=== PATIENT | male | born 1965 | race Caucasian/White ===

== ENCOUNTER 2018-01-03 05:29 | Emergency (ER) | payer SELFPAY ==
[~2018-01-03] VITALS: Ht 185.4 cm; Wt 92.7 kg
[2018-01-03] MEDS ORDERED: DIPH,PERTUSS(ACELL),TET VAC/PF 0.5 ML IM-VACC ONE (06:00)
[2018-01-03] MEDS ORDERED: CLINDAMYCIN PMX 600MG/50ML 50 ML IVPB ONE (06:00)
[2018-01-03] MEDS ORDERED: SODIUM CHLORIDE FLUSH 10ML SYR IVF ONE (06:00)
[2018-01-03] MEDS ORDERED: KETOROLAC 30 MG/1 ML ONE (06:09)
[2018-01-03] MEDS ORDERED: CLINDAMYCIN PMX 600MG/50ML 50 ML ONE (06:09)
[2018-01-03 06:16] LABS: BASOPHILS # (AUTO) 0.16 x10^3/uL (0-0.1); BASOPHILS % (AUTO) 1 % (0-1); EOSINOPHILS # (AUTO) 0.09 x10^3/uL (0-0.4); EOSINOPHILS % (AUTO) 1 % (1-7); LYMPHOCYTES # (AUTO) 0.82 x10^3/uL (1-3.4); LYMPHOCYTES % (AUTO) 5 % (22-44); MD NO; MEAN CORPUSCULAR HEMOGLOBIN 29.8 pg (27.5-34.5); MEAN CORPUSCULAR HGB CONC 33.7 g/dL (33.2-36.2); MEAN CORPUSCULAR VOLUME 88.5 fL (81-97); MEAN PLATELET VOLUME 8.3 fL (7.4-10.4); MONOCYTES # (AUTO) 0.92 x10^3/uL (0.2-0.8); MONOCYTES % (AUTO) 6 % (2-9); NEUTROPHILS # (AUTO) 13.17 x10^3/uL (1.8-6.8); NEUTROPHILS % (AUTO) 87 % (42-75); PLATELET COUNT 252 x10^3/uL (130-400); RED BLOOD COUNT 4.87 x10^6/uL (4.38-5.82); RED CELL DISTRIBUTION WIDTH 13.3 % (9.4-14.8)
[2018-01-03 06:24] LABS: ALBUMIN 2.8 g/dL (3.4-5.0); ANION GAP 8 mmol/L (5-15); CALCIUM 8.2 mg/dL (8.5-10.1); CHLORIDE 104 mmol/L (98-107); CREATININE 0.92 mg/dL (0.7-1.3)
[2018-01-03] MEDS ORDERED: KETOROLAC 30 MG/1 ML IVPush ONE (06:30)
[2018-01-03] MEDS ORDERED: SODIUM CHLORIDE 0.9% 1,000ML IVBOLUS ONE (06:30)
[2018-01-03 07:14] LABS: ACETONE, SERUM Negative (Negative)
[2018-01-03 07:39] LABS: HEMOGLOBIN A1C 11.9 % (4.2-6.3)
[2018-01-03 09:05] VITALS: BP 149/90
== END 2018-01-03 09:08 | disposition home or self-care (01) ==
LOC: ED 07:12
DX: L02.811 Cutaneous abscess of head [any part, except face] (principal); E11.65 Type 2 diabetes mellitus with hyperglycemia
CPT/HCPCS: 36415; 70450; 80048; 82010; 82040; 82800; 82962; 83036; 85025; 96365; 96366; 96375; 99285; J1885; J7030

== ENCOUNTER 2018-08-16 11:47 | Emergency (ER) | payer SELFPAY ==
[~2018-08-16] VITALS: Ht 185.4 cm; Wt 87.1 kg
[2018-08-16 12:01] VITALS: BP 126/85
[2018-08-16] MEDS ORDERED: CARBAMIDE PEROXIDE EAR DROPS 6.5%, 15ML LEFT EAR ONE (12:30)
[2018-08-16] MEDS ORDERED: CARBAMIDE PEROXIDE EAR DROPS 6.5%, 15ML ONE (12:31)
== END 2018-08-16 13:37 | disposition home or self-care (01) ==
LOC: ED 13:10
DX: H60.12 Cellulitis of left external ear (principal); H61.22 Impacted cerumen, left ear
CPT/HCPCS: 69209; 99283

== ENCOUNTER 2018-09-02 20:57 | Inpatient (IN) | payer MEDICAID, OTHER ==
[~2018-09-02] VITALS: Ht 185.4 cm; Wt 85.5 kg
--- NOTE | 2018-09-02 21:51 | NUR ---
PT TO ROOM FROM LOBBY AT THIS TIME.
--- NOTE | 2018-09-02 22:12 | NUR ---
PT PRESENTED WITH C/O NON RADIATING RIGHT SIDED CHEST PAIN SINCE THIS MORNING THAT IS WORSE WITH DEEP BREATHING. DENIES N/V, SOB. MONITORS APPLIED, SIDERAILS UP X2, CALL LIGHT WITHIN REACH. AWAITING ERP FOR EVAL AND ORDERS
[2018-09-02] MEDS ORDERED: KETOROLAC 30 MG/1 ML ONE (23:17)
--- NOTE | 2018-09-02 23:20 | NUR ---
PT MEDICATED PER MAR
[2018-09-02 23:23] LABS: BASOPHILS # (AUTO) 0.11 x10^3/uL (0-0.1); BASOPHILS % (AUTO) 1 % (0-1); EOSINOPHILS # (AUTO) 0.01 x10^3/uL (0-0.4); EOSINOPHILS % (AUTO) 0 % (1-7); LYMPHOCYTES # (AUTO) 1.22 x10^3/uL (1-3.4); LYMPHOCYTES % (AUTO) 9 % (22-44); MD NO; MEAN CORPUSCULAR HEMOGLOBIN 28.4 pg (27.5-34.5); MEAN CORPUSCULAR HGB CONC 33.8 g/dL (33.2-36.2); MEAN PLATELET VOLUME 7.4 fL (7.4-10.4); MONOCYTES # (AUTO) 1.34 x10^3/uL (0.2-0.8); MONOCYTES % (AUTO) 10 % (2-9); NEUTROPHILS # (AUTO) 11.42 x10^3/uL (1.8-6.8); NEUTROPHILS % (AUTO) 81 % (42-75); PLATELET COUNT 295 x10^3/uL (130-400); RED BLOOD COUNT 4.91 x10^6/uL (4.38-5.82)
[2018-09-02] MEDS ORDERED: KETOROLAC 30 MG/1 ML IVPush ONE (23:30)
[2018-09-02 23:33] LABS: ALBUMIN 2.5 g/dL (3.4-5.0); ANION GAP 8 mmol/L (5-15); CALCIUM 8.5 mg/dL (8.5-10.1); CHLORIDE 97 mmol/L (98-107); CREATININE 0.78 mg/dL (0.7-1.3)
[2018-09-02 23:37] LABS: TROPONIN I < 0.015 ng/mL (0.000-0.045)
[2018-09-03] MEDS ORDERED: OMNIPAQUE 350 MG/ML, 100ML BOTTLE ONE (00:10)
--- NOTE | 2018-09-03 00:24 | NUR ---
PT RESTING ON GURNEY, DENIES PAIN, NAD, CALL LIGHT WITHIN REACH. AWAITING CT RESULT
[2018-09-03] MEDS ORDERED: AZITHROMYCIN 500 MG in SODIUM CHLORIDE 0.9% 250 ML IV ONE (01:30)
[2018-09-03] MEDS ORDERED: CEFTRIAXONE 1,000 MG in SODIUM CHLORIDE 0.9% 50 ML IVPB ONE (01:30)
--- NOTE | 2018-09-03 01:32 | NUR ---
[employer] WORKER AT BEDSIDE FOR BLOOD C/X X 2 SETS
--- NOTE | 2018-09-03 01:39 | NUR ---
CALLED TO GIVE REPORT TO PRIYANKA LESTER TO CALL ME BACK
[2018-09-03 02:00] VITALS: BP 137/88
[2018-09-03] MEDS ORDERED: AZITHROMYCIN 500 MG in SODIUM CHLORIDE 0.9% 250 ML IV SCH (03:00)
[2018-09-03] MEDS ORDERED: ONDANSETRON 2MG/ML, 2ML IVPush PRN (03:00)
[2018-09-03] MEDS ORDERED: morphine SULFATE 10 MG/ML, 1ML IVPush PRN (03:00)
[2018-09-03] MEDS: LACTATED RINGERS 1,000 ML IV SCH (03:39)
[2018-09-03] MEDS: HEPARIN 5,000 UNITS/ML, 1ML SQ SCH ×3 (03:50→21:52)
[2018-09-03 04:00] LABS: HEMOGLOBIN A1C 13.4 % (4.2-6.3)
[2018-09-03] MEDS: CEFTRIAXONE PMX 1GM/50ML 50 ML IV SCH (04:38)
[2018-09-03 07:10] VITALS: BP 126/72
[2018-09-03] MEDS ORDERED: VANCOMYCIN PER PHARMACY MC PRN (10:00)
[2018-09-03] MEDS ORDERED: PHARMACOKINETIC MONITORING MC PRN (10:30)
[2018-09-03] MEDS: INSULIN LISPRO 100 UNITS/ML, PEN SQ-INSULIN SCH ×4 (11:00→21:52)
[2018-09-03] MEDS: VANCOMYCIN 1,700 MG in SODIUM CHLORIDE 0.9% 250 ML IV SCH (13:46)
[2018-09-03 13:57] VITALS: BP 133/87
[2018-09-03 21:48] VITALS: BP 143/84
[2018-09-03] MEDS: ACETAMINOPHEN 325 MG TABLET PO PRN (22:00)
[2018-09-04 02:11] VITALS: BP 113/71
[2018-09-04] MEDS: VANCOMYCIN 1,700 MG in SODIUM CHLORIDE 0.9% 250 ML IV SCH ×2 (02:16→14:36)
[2018-09-04] MEDS: CEFTRIAXONE PMX 1GM/50ML 50 ML IV SCH (04:55)
[2018-09-04] MEDS ORDERED: SODIUM CHLORIDE INHALATION 7%, 4 ML NPPB ONE (05:00)
[2018-09-04] MEDS: HEPARIN 5,000 UNITS/ML, 1ML SQ SCH ×3 (05:14→20:50)
[2018-09-04] MEDS: LACTATED RINGERS 1,000 ML IV SCH (06:50)
[2018-09-04 06:51] LABS: BASOPHILS # (AUTO) 0.07 x10^3/uL (0-0.1); BASOPHILS % (AUTO) 1 % (0-1); EOSINOPHILS # (AUTO) 0.11 x10^3/uL (0-0.4); EOSINOPHILS % (AUTO) 1 % (1-7); LYMPHOCYTES # (AUTO) 0.77 x10^3/uL (1-3.4); LYMPHOCYTES % (AUTO) 6 % (22-44); MD NO; MEAN CORPUSCULAR HEMOGLOBIN 28.9 pg (27.5-34.5); MEAN CORPUSCULAR HGB CONC 34.5 g/dL (33.2-36.2); MEAN CORPUSCULAR VOLUME 83.9 fL (81-97); MEAN PLATELET VOLUME 7.3 fL (7.4-10.4); MONOCYTES # (AUTO) 1.09 x10^3/uL (0.2-0.8); MONOCYTES % (AUTO) 8 % (2-9); NEUTROPHILS # (AUTO) 11.59 x10^3/uL (1.8-6.8); NEUTROPHILS % (AUTO) 85 % (42-75); PLATELET COUNT 292 x10^3/uL (130-400); RED BLOOD COUNT 4.46 x10^6/uL (4.38-5.82); RED CELL DISTRIBUTION WIDTH 14.6 % (9.4-14.8)
[2018-09-04 07:01] LABS: ANION GAP 7 mmol/L (5-15); CALCIUM 8.1 mg/dL (8.5-10.1); CHLORIDE 95 mmol/L (98-107)
[2018-09-04 07:09] LABS: ALANINE AMINOTRANSFERASE 18 U/L (12-78); ALKALINE PHOSPHATASE 153 U/L (45-117); BILIRUBIN,TOTAL 0.6 mg/dL (0.2-1.0); CREATININE 0.55 mg/dL (0.7-1.3); TOTAL PROTEIN 7.4 g/dL (6.4-8.2)
[2018-09-04 07:16] LABS: C-REACTIVE PROTEIN, QUANT > 19.00 mg/dL (0.02-0.49)
[2018-09-04 07:39] LABS: HCT (SEDRATE) 37.4 % (39.2-51.8)
[2018-09-04 08:01] VITALS: BP 123/75
[2018-09-04] MEDS ORDERED: AZITHROMYCIN 500 MG in SODIUM CHLORIDE 0.9% 250 ML IV SCH (09:00)
[2018-09-04] MEDS: LISINOPRIL 5 MG TABLET PO SCH (09:22)
[2018-09-04] MEDS: INSULIN LISPRO 100 UNITS/ML, PEN SQ-INSULIN SCH ×4 (09:22→21:12)
[2018-09-04 12:00] VITALS: BP 123/82
[2018-09-04 21:30] VITALS: BP 121/79
[2018-09-04] MEDS ORDERED: PNEUMOC 13-VALENT VACC, 0.5 ML IM-VACC ONE (21:30)
[2018-09-04 21:43] LABS: RAPID INFLUENZA A Negative (Negative); RAPID INFLUENZA B Negative (Negative)
[2018-09-05 01:53] LABS: BASOPHILS # (AUTO) 0.05 x10^3/uL (0-0.1); BASOPHILS % (AUTO) 0 % (0-1); EOSINOPHILS % (AUTO) 0 % (1-7); LYMPHOCYTES # (AUTO) 1.23 x10^3/uL (1-3.4); LYMPHOCYTES % (AUTO) 9 % (22-44); MD NO; MEAN CORPUSCULAR HEMOGLOBIN 28.1 pg (27.5-34.5); MEAN CORPUSCULAR HGB CONC 33.5 g/dL (33.2-36.2); MEAN CORPUSCULAR VOLUME 83.9 fL (81-97); MEAN PLATELET VOLUME 7.4 fL (7.4-10.4); MONOCYTES # (AUTO) 1.25 x10^3/uL (0.2-0.8); MONOCYTES % (AUTO) 9 % (2-9); NEUTROPHILS # (AUTO) 11.48 x10^3/uL (1.8-6.8); NEUTROPHILS % (AUTO) 82 % (42-75); PLATELET COUNT 303 x10^3/uL (130-400); RED BLOOD COUNT 4.16 x10^6/uL (4.38-5.82); RED CELL DISTRIBUTION WIDTH 15.2 % (9.4-14.8)
[2018-09-05 01:57] VITALS: BP 116/75
[2018-09-05 02:07] LABS: ALBUMIN 1.7 g/dL (3.4-5.0); ANION GAP 6 mmol/L (5-15); CALCIUM 7.7 mg/dL (8.5-10.1); CHLORIDE 95 mmol/L (98-107)
[2018-09-05 02:13] LABS: ALANINE AMINOTRANSFERASE 15 U/L (12-78); ALKALINE PHOSPHATASE 142 U/L (45-117); BILIRUBIN,TOTAL 0.6 mg/dL (0.2-1.0); CREATININE 0.58 mg/dL (0.7-1.3); TOTAL PROTEIN 6.6 g/dL (6.4-8.2)
[2018-09-05] MEDS: VANCOMYCIN 1,700 MG in SODIUM CHLORIDE 0.9% 250 ML IV SCH ×3 (03:06→22:05)
[2018-09-05] MEDS: LACTATED RINGERS 1,000 ML IV SCH (04:48)
[2018-09-05] MEDS: HEPARIN 5,000 UNITS/ML, 1ML SQ SCH ×3 (06:21→22:05)
[2018-09-05 07:52] VITALS: BP 120/78
[2018-09-05] MEDS: LISINOPRIL 5 MG TABLET PO SCH (08:07)
[2018-09-05] MEDS: INSULIN LISPRO 100 UNITS/ML, PEN SQ-INSULIN SCH ×4 (08:07→22:05)
[2018-09-05 13:52] VITALS: BP 107/68
[2018-09-05] MEDS ORDERED: POTASSIUM CHLORIDE 20 MEQ TAB.ER.PRT PO ONE (15:00)
[2018-09-05 16:33] LABS: AMPHETAMINE SCREEN, URINE Negative (Negative); BARBITURATE SCREEN, URINE Negative (Negative); BENZODIAZEPINE SCREEN, URINE Negative (Negative); CANNABINOID SCREEN, URINE Negative (Negative); COCAINE SCREEN, URINE Negative (Negative); METHADONE SCREEN, URINE Negative (Negative); OPIATE SCREEN, URINE Negative (Negative)
[2018-09-05 19:51] VITALS: BP 117/74
[2018-09-06 00:12] LABS: CULTURE INDICATED? YES; MICROSCOPIC INDICATED
[2018-09-06 01:20] VITALS: BP 124/82
[2018-09-06] MEDS: LACTATED RINGERS 1,000 ML IV SCH ×2 (01:28→21:07)
[2018-09-06 05:41] LABS: BASOPHILS # (AUTO) 0.02 x10^3/uL (0-0.1); BASOPHILS % (AUTO) 0 % (0-1); EOSINOPHILS # (AUTO) 0.21 x10^3/uL (0-0.4); EOSINOPHILS % (AUTO) 2 % (1-7); LYMPHOCYTES # (AUTO) 1.07 x10^3/uL (1-3.4); LYMPHOCYTES % (AUTO) 9 % (22-44); MD NO; MEAN CORPUSCULAR HGB CONC 33.3 g/dL (33.2-36.2); MEAN CORPUSCULAR VOLUME 84.3 fL (81-97); MEAN PLATELET VOLUME 7.5 fL (7.4-10.4); MONOCYTES # (AUTO) 0.86 x10^3/uL (0.2-0.8); MONOCYTES % (AUTO) 7 % (2-9); NEUTROPHILS # (AUTO) 9.58 x10^3/uL (1.8-6.8); NEUTROPHILS % (AUTO) 82 % (42-75); PLATELET COUNT 388 x10^3/uL (130-400); RED CELL DISTRIBUTION WIDTH 14.6 % (9.4-14.8)
[2018-09-06 05:43] LABS: CHLORIDE 99 mmol/L (98-107)
[2018-09-06 06:01] LABS: ANION GAP 6 mmol/L (5-15); CALCIUM 8.3 mg/dL (8.5-10.1); CREATININE 0.59 mg/dL (0.7-1.3); VANCOMYCIN,TROUGH 17.1 mcg/mL (5.0-10.0)
[2018-09-06] MEDS: VANCOMYCIN 1,700 MG in SODIUM CHLORIDE 0.9% 250 ML IV SCH ×3 (06:22→22:04)
[2018-09-06] MEDS: HEPARIN 5,000 UNITS/ML, 1ML SQ SCH ×3 (06:22→22:06)
[2018-09-06] MEDS: ACETAMINOPHEN 325 MG TABLET PO PRN ×3 (06:42→22:04)
[2018-09-06 08:11] VITALS: BP 119/72
[2018-09-06] MEDS: INSULIN LISPRO 100 UNITS/ML, PEN SQ-INSULIN SCH ×4 (08:36→21:07)
[2018-09-06] MEDS: LISINOPRIL 5 MG TABLET PO SCH (08:36)
[2018-09-06 14:05] VITALS: BP 122/83
[2018-09-06] MEDS ORDERED: POTASSIUM PHOSPHATE 22 MEQ in SODIUM CHLORIDE 0.9% 500 ML IV ONE (15:30)
[2018-09-06 19:14] VITALS: BP 114/69
[2018-09-07 00:55] VITALS: BP 121/83
[2018-09-07] MEDS: ACETAMINOPHEN 325 MG TABLET PO PRN ×5 (04:36→22:16)
[2018-09-07 05:38] LABS: BASOPHILS % (AUTO) 1 % (0-1); EOSINOPHILS # (AUTO) 0.35 x10^3/uL (0-0.4); EOSINOPHILS % (AUTO) 3 % (1-7); LYMPHOCYTES # (AUTO) 1.26 x10^3/uL (1-3.4); LYMPHOCYTES % (AUTO) 12 % (22-44); MD NO; MEAN CORPUSCULAR HEMOGLOBIN 28.4 pg (27.5-34.5); MEAN CORPUSCULAR HGB CONC 33.7 g/dL (33.2-36.2); MEAN CORPUSCULAR VOLUME 84.3 fL (81-97); MEAN PLATELET VOLUME 7.3 fL (7.4-10.4); MONOCYTES # (AUTO) 0.89 x10^3/uL (0.2-0.8); MONOCYTES % (AUTO) 9 % (2-9); NEUTROPHILS # (AUTO) 7.73 x10^3/uL (1.8-6.8); NEUTROPHILS % (AUTO) 75 % (42-75); PLATELET COUNT 381 x10^3/uL (130-400); RED BLOOD COUNT 4.16 x10^6/uL (4.38-5.82)
[2018-09-07] MEDS: VANCOMYCIN 1,700 MG in SODIUM CHLORIDE 0.9% 250 ML IV SCH ×3 (06:31→22:19)
[2018-09-07] MEDS: HEPARIN 5,000 UNITS/ML, 1ML SQ SCH ×3 (06:31→22:16)
[2018-09-07 06:42] VITALS: BP 132/83
[2018-09-07] MEDS: LISINOPRIL 5 MG TABLET PO SCH (08:02)
[2018-09-07] MEDS: INSULIN LISPRO 100 UNITS/ML, PEN SQ-INSULIN SCH ×4 (08:03→22:18)
[2018-09-07 12:15] VITALS: BP 138/96
[2018-09-07 20:46] VITALS: BP 148/90
[2018-09-07] MEDS: INSULIN GLARGINE 100 UNITS/ML, PEN SQ-INSULIN SCH (22:19)
[2018-09-08 03:33] VITALS: BP 146/92
[2018-09-08] MEDS: ACETAMINOPHEN 325 MG TABLET PO PRN ×4 (05:00→21:01)
[2018-09-08] MEDS: VANCOMYCIN 1,700 MG in SODIUM CHLORIDE 0.9% 250 ML IV SCH ×4 (06:13→22:46)
[2018-09-08] MEDS: HEPARIN 5,000 UNITS/ML, 1ML SQ SCH ×3 (06:14→22:09)
[2018-09-08 06:47] VITALS: BP 154/92
[2018-09-08] MEDS: INSULIN LISPRO 100 UNITS/ML, PEN SQ-INSULIN SCH ×4 (07:50→21:00)
[2018-09-08] MEDS: LISINOPRIL 5 MG TABLET PO SCH (07:50)
[2018-09-08 13:08] VITALS: BP 128/85
[2018-09-08 19:49] VITALS: BP 150/92
[2018-09-08] MEDS: INSULIN GLARGINE 100 UNITS/ML, PEN SQ-INSULIN SCH (21:01)
[2018-09-09 02:34] VITALS: BP 149/89
[2018-09-09] MEDS: HEPARIN 5,000 UNITS/ML, 1ML SQ SCH ×3 (06:12→21:46)
[2018-09-09] MEDS: VANCOMYCIN 1,700 MG in SODIUM CHLORIDE 0.9% 250 ML IV SCH (06:12)
[2018-09-09] MEDS: INSULIN LISPRO 100 UNITS/ML, PEN SQ-INSULIN SCH ×4 (06:18→20:39)
[2018-09-09 07:40] VITALS: BP 164/94
[2018-09-09] MEDS: LISINOPRIL 5 MG TABLET PO SCH (09:25)
[2018-09-09] MEDS: MUPIROCIN OINT 2%, 22GM TP SCH ×2 (13:49→20:39)
[2018-09-09 14:03] VITALS: BP 153/86
[2018-09-09 20:09] VITALS: BP 161/88
[2018-09-09] MEDS: CEFTAROLINE 600 MG in SODIUM CHLORIDE 0.9% 100 ML IV SCH (20:38)
[2018-09-09] MEDS: INSULIN GLARGINE 100 UNITS/ML, PEN SQ-INSULIN SCH (20:40)
[2018-09-10 02:55] VITALS: BP 144/79
[2018-09-10] MEDS: CEFTAROLINE 600 MG in SODIUM CHLORIDE 0.9% 100 ML IV SCH ×3 (04:28→22:28)
[2018-09-10] MEDS: HEPARIN 5,000 UNITS/ML, 1ML SQ SCH ×3 (06:23→22:29)
[2018-09-10] MEDS: INSULIN LISPRO 100 UNITS/ML, PEN SQ-INSULIN SCH ×4 (06:24→21:00)
[2018-09-10] MEDS: MUPIROCIN OINT 2%, 22GM TP SCH ×2 (06:26→18:31)
[2018-09-10 06:45] LABS: ANION GAP 4 mmol/L (5-15); CALCIUM 8.2 mg/dL (8.5-10.1); CHLORIDE 109 mmol/L (98-107); CREATININE 0.97 mg/dL (0.7-1.3)
[2018-09-10 07:53] VITALS: BP 138/79
[2018-09-10] MEDS: LISINOPRIL 5 MG TABLET PO SCH (09:28)
[2018-09-10] MEDS ORDERED: BISACODYL 10 MG SUPP PR PRN (10:30)
[2018-09-10] MEDS: DOCUSATE 100 MG CAPSULE PO SCH ×2 (11:09→21:00)
[2018-09-10 14:03] VITALS: BP 159/94
[2018-09-10 20:00] VITALS: BP 157/93
[2018-09-10] MEDS: INSULIN GLARGINE 100 UNITS/ML, PEN SQ-INSULIN SCH (22:46)
[2018-09-11 00:30] VITALS: BP 154/89
[2018-09-11] MEDS: CEFTAROLINE 600 MG in SODIUM CHLORIDE 0.9% 100 ML IV SCH ×3 (06:10→21:07)
[2018-09-11] MEDS: MUPIROCIN OINT 2%, 22GM TP SCH ×2 (06:10→16:20)
[2018-09-11] MEDS: HEPARIN 5,000 UNITS/ML, 1ML SQ SCH ×3 (06:10→23:45)
[2018-09-11] MEDS: INSULIN LISPRO 100 UNITS/ML, PEN SQ-INSULIN SCH ×4 (06:36→21:08)
[2018-09-11 06:38] VITALS: BP 168/98
[2018-09-11] MEDS: DOCUSATE 100 MG CAPSULE PO SCH ×2 (09:00→20:57)
[2018-09-11] MEDS: LISINOPRIL 5 MG TABLET PO SCH (09:07)
[2018-09-11] MEDS: INSULIN GLARGINE 100 UNITS/ML, PEN SQ-INSULIN SCH ×2 (10:47→21:07)
[2018-09-11 14:41] VITALS: BP 156/85
[2018-09-11 19:15] VITALS: BP 168/95
[2018-09-11] MEDS: TEMAZEPAM 30 MG CAPSULE PO PRN (23:45)
[2018-09-12 00:32] VITALS: BP 152/80
[2018-09-12] MEDS: CEFTAROLINE 600 MG in SODIUM CHLORIDE 0.9% 100 ML IV SCH ×3 (05:00→21:37)
[2018-09-12] MEDS: MUPIROCIN OINT 2%, 22GM TP SCH ×2 (06:00→16:14)
[2018-09-12] MEDS: INSULIN LISPRO 100 UNITS/ML, PEN SQ-INSULIN SCH ×4 (07:00→22:08)
[2018-09-12 07:19] VITALS: BP 148/87
[2018-09-12] MEDS: HEPARIN 5,000 UNITS/ML, 1ML SQ SCH ×2 (09:06→16:13)
[2018-09-12] MEDS: DOCUSATE 100 MG CAPSULE PO SCH ×2 (09:06→21:00)
[2018-09-12] MEDS: LISINOPRIL 5 MG TABLET PO SCH (09:06)
[2018-09-12] MEDS: INSULIN GLARGINE 100 UNITS/ML, PEN SQ-INSULIN SCH ×2 (09:06→22:08)
[2018-09-12 12:59] VITALS: BP 158/93
[2018-09-12 18:39] VITALS: BP 159/62
[2018-09-12] MEDS: TEMAZEPAM 30 MG CAPSULE PO PRN (22:07)
[2018-09-13 01:26] VITALS: BP 162/96
[2018-09-13] MEDS: HEPARIN 5,000 UNITS/ML, 1ML SQ SCH ×3 (01:48→17:39)
[2018-09-13] MEDS: CEFTAROLINE 600 MG in SODIUM CHLORIDE 0.9% 100 ML IV SCH ×3 (05:27→21:47)
[2018-09-13] MEDS: INSULIN LISPRO 100 UNITS/ML, PEN SQ-INSULIN SCH ×4 (06:40→21:48)
[2018-09-13] MEDS: MUPIROCIN OINT 2%, 22GM TP SCH ×2 (06:40→16:10)
[2018-09-13 06:45] VITALS: BP 153/103
[2018-09-13] MEDS: LISINOPRIL 5 MG TABLET PO SCH (08:20)
[2018-09-13] MEDS: DOCUSATE 100 MG CAPSULE PO SCH ×3 (08:20→21:58)
[2018-09-13] MEDS: INSULIN GLARGINE 100 UNITS/ML, PEN SQ-INSULIN SCH ×2 (08:21→21:48)
[2018-09-13 08:23] VITALS: BP 158/93
[2018-09-13 13:34] VITALS: BP 143/88
[2018-09-13 19:55] VITALS: BP 151/91
[2018-09-14] MEDS: TEMAZEPAM 30 MG CAPSULE PO PRN (00:08)
[2018-09-14] MEDS: HEPARIN 5,000 UNITS/ML, 1ML SQ SCH ×3 (04:40→21:52)
[2018-09-14] MEDS: CEFTAROLINE 600 MG in SODIUM CHLORIDE 0.9% 100 ML IV SCH ×3 (04:40→21:09)
[2018-09-14 05:05] LABS: BASOPHILS # (AUTO) 0.03 x10^3/uL (0-0.1); BASOPHILS % (AUTO) 0 % (0-1); EOSINOPHILS # (AUTO) 0.24 x10^3/uL (0-0.4); EOSINOPHILS % (AUTO) 3 % (1-7); LYMPHOCYTES # (AUTO) 2.06 x10^3/uL (1-3.4); LYMPHOCYTES % (AUTO) 27 % (22-44); MD NO; MEAN CORPUSCULAR HEMOGLOBIN 28.3 pg (27.5-34.5); MEAN CORPUSCULAR HGB CONC 33.3 g/dL (33.2-36.2); MEAN CORPUSCULAR VOLUME 84.9 fL (81-97); MONOCYTES # (AUTO) 0.61 x10^3/uL (0.2-0.8); MONOCYTES % (AUTO) 8 % (2-9); NEUTROPHILS # (AUTO) 4.77 x10^3/uL (1.8-6.8); NEUTROPHILS % (AUTO) 62 % (42-75); PLATELET COUNT 478 x10^3/uL (130-400); RED CELL DISTRIBUTION WIDTH 15.5 % (9.4-14.8)
[2018-09-14 05:12] LABS: ALANINE AMINOTRANSFERASE 17 U/L (12-78); ALBUMIN 2.2 g/dL (3.4-5.0); ANION GAP 6 mmol/L (5-15); CALCIUM 8.7 mg/dL (8.5-10.1); CHLORIDE 111 mmol/L (98-107); CREATININE 0.98 mg/dL (0.7-1.3)
[2018-09-14 05:21] VITALS: BP 151/85
[2018-09-14 05:21] LABS: ALKALINE PHOSPHATASE 133 U/L (45-117); BILIRUBIN,TOTAL 0.3 mg/dL (0.2-1.0); TOTAL PROTEIN 7.9 g/dL (6.4-8.2)
[2018-09-14 05:40] LABS: HCT (SEDRATE) 35.1 % (39.2-51.8)
[2018-09-14] MEDS: MUPIROCIN OINT 2%, 22GM TP SCH ×2 (06:30→16:45)
[2018-09-14] MEDS: INSULIN LISPRO 100 UNITS/ML, PEN SQ-INSULIN SCH ×4 (07:00→21:51)
[2018-09-14 07:05] VITALS: BP 144/90
[2018-09-14] MEDS: DOCUSATE 100 MG CAPSULE PO SCH ×2 (09:00→21:00)
[2018-09-14] MEDS: INSULIN GLARGINE 100 UNITS/ML, PEN SQ-INSULIN SCH ×2 (09:16→21:52)
[2018-09-14] MEDS: LISINOPRIL 5 MG TABLET PO SCH (09:16)
[2018-09-14 15:16] VITALS: BP 154/95
[2018-09-14 19:33] VITALS: BP 154/92
[2018-09-15 02:30] VITALS: BP 134/78
[2018-09-15] MEDS: HEPARIN 5,000 UNITS/ML, 1ML SQ SCH ×3 (04:58→21:59)
[2018-09-15] MEDS: CEFTAROLINE 600 MG in SODIUM CHLORIDE 0.9% 100 ML IV SCH ×3 (04:59→21:57)
[2018-09-15] MEDS: MUPIROCIN OINT 2%, 22GM TP SCH ×2 (04:59→16:58)
[2018-09-15] MEDS: INSULIN LISPRO 100 UNITS/ML, PEN SQ-INSULIN SCH ×4 (06:59→21:58)
[2018-09-15 07:59] VITALS: BP 160/93
[2018-09-15] MEDS: INSULIN GLARGINE 100 UNITS/ML, PEN SQ-INSULIN SCH ×2 (08:59→21:59)
[2018-09-15] MEDS: DOCUSATE 100 MG CAPSULE PO SCH ×2 (08:59→21:59)
[2018-09-15] MEDS: LISINOPRIL 5 MG TABLET PO SCH (08:59)
[2018-09-15 14:20] VITALS: BP 157/84
[2018-09-15 14:38] VITALS: BP 126/79
[2018-09-15 19:56] VITALS: BP 151/87
[2018-09-16 03:01] VITALS: BP 137/80
[2018-09-16] MEDS: HEPARIN 5,000 UNITS/ML, 1ML SQ SCH ×3 (05:13→21:41)
[2018-09-16] MEDS: CEFTAROLINE 600 MG in SODIUM CHLORIDE 0.9% 100 ML IV SCH ×3 (05:13→21:41)
[2018-09-16] MEDS: MUPIROCIN OINT 2%, 22GM TP SCH ×2 (05:13→16:21)
[2018-09-16] MEDS: INSULIN LISPRO 100 UNITS/ML, PEN SQ-INSULIN SCH ×4 (07:00→21:42)
[2018-09-16 08:44] VITALS: BP 132/81
[2018-09-16] MEDS: INSULIN GLARGINE 100 UNITS/ML, PEN SQ-INSULIN SCH ×2 (08:53→21:42)
[2018-09-16] MEDS: DOCUSATE 100 MG CAPSULE PO SCH ×2 (08:53→21:42)
[2018-09-16] MEDS: LISINOPRIL 5 MG TABLET PO SCH (08:53)
[2018-09-16 13:07] VITALS: BP 148/90
[2018-09-16 19:22] VITALS: BP 136/85
[2018-09-17 01:06] VITALS: BP 141/78
[2018-09-17] MEDS: CEFTAROLINE 600 MG in SODIUM CHLORIDE 0.9% 100 ML IV SCH ×3 (05:30→21:41)
[2018-09-17] MEDS: MUPIROCIN OINT 2%, 22GM TP SCH ×2 (05:31→16:47)
[2018-09-17] MEDS: HEPARIN 5,000 UNITS/ML, 1ML SQ SCH ×3 (05:31→21:25)
[2018-09-17] MEDS: INSULIN LISPRO 100 UNITS/ML, PEN SQ-INSULIN SCH ×4 (06:37→21:00)
[2018-09-17 07:12] VITALS: BP 133/87
[2018-09-17] MEDS: DOCUSATE 100 MG CAPSULE PO SCH ×2 (09:00→21:00)
[2018-09-17] MEDS: LISINOPRIL 5 MG TABLET PO SCH (09:56)
[2018-09-17] MEDS: INSULIN GLARGINE 100 UNITS/ML, PEN SQ-INSULIN SCH ×2 (09:56→21:41)
[2018-09-17 13:39] VITALS: BP 123/79
[2018-09-17 20:01] VITALS: BP 117/77
[2018-09-18 02:36] VITALS: BP 120/73
[2018-09-18] MEDS: CEFTAROLINE 600 MG in SODIUM CHLORIDE 0.9% 100 ML IV SCH ×3 (06:09→21:07)
[2018-09-18] MEDS: HEPARIN 5,000 UNITS/ML, 1ML SQ SCH ×3 (06:10→20:56)
[2018-09-18] MEDS: MUPIROCIN OINT 2%, 22GM TP SCH ×2 (06:10→18:25)
[2018-09-18] MEDS: INSULIN LISPRO 100 UNITS/ML, PEN SQ-INSULIN SCH ×4 (06:39→21:00)
[2018-09-18 07:55] VITALS: BP 142/92
[2018-09-18] MEDS: DOCUSATE 100 MG CAPSULE PO SCH ×2 (07:59→21:00)
[2018-09-18] MEDS: LISINOPRIL 5 MG TABLET PO SCH (07:59)
[2018-09-18] MEDS: INSULIN GLARGINE 100 UNITS/ML, PEN SQ-INSULIN SCH ×2 (08:00→21:00)
[2018-09-18 13:46] VITALS: BP 133/88
[2018-09-18 20:03] VITALS: BP 127/84
[2018-09-18] MEDS: TEMAZEPAM 30 MG CAPSULE PO PRN (20:55)
[2018-09-19 03:04] VITALS: BP 131/77
[2018-09-19] MEDS: CEFTAROLINE 600 MG in SODIUM CHLORIDE 0.9% 100 ML IV SCH ×3 (05:33→21:27)
[2018-09-19] MEDS: HEPARIN 5,000 UNITS/ML, 1ML SQ SCH ×3 (05:34→21:26)
[2018-09-19] MEDS: MUPIROCIN OINT 2%, 22GM TP SCH ×2 (06:00→16:18)
[2018-09-19] MEDS: INSULIN LISPRO 100 UNITS/ML, PEN SQ-INSULIN SCH ×4 (07:16→21:00)
[2018-09-19 07:49] VITALS: BP 133/83
[2018-09-19] MEDS: DOCUSATE 100 MG CAPSULE PO SCH ×2 (09:21→21:00)
[2018-09-19] MEDS: LISINOPRIL 5 MG TABLET PO SCH (09:59)
[2018-09-19] MEDS: INSULIN GLARGINE 100 UNITS/ML, PEN SQ-INSULIN SCH ×2 (10:01→21:26)
[2018-09-19 14:10] VITALS: BP 105/68
[2018-09-19 20:00] VITALS: BP 128/82
[2018-09-19] MEDS: TEMAZEPAM 30 MG CAPSULE PO PRN (22:48)
[2018-09-19 22:49] VITALS: BP 128/82
[2018-09-20 03:00] VITALS: BP 109/71
[2018-09-20] MEDS: CEFTAROLINE 600 MG in SODIUM CHLORIDE 0.9% 100 ML IV SCH ×3 (04:47→20:42)
[2018-09-20] MEDS: HEPARIN 5,000 UNITS/ML, 1ML SQ SCH ×3 (04:48→20:43)
[2018-09-20] MEDS: MUPIROCIN OINT 2%, 22GM TP SCH ×3 (04:48→20:46)
[2018-09-20] MEDS: INSULIN LISPRO 100 UNITS/ML, PEN SQ-INSULIN SCH ×4 (07:00→20:43)
[2018-09-20 08:05] VITALS: BP 136/91
[2018-09-20] MEDS: DOCUSATE 100 MG CAPSULE PO SCH ×2 (09:00→21:00)
[2018-09-20] MEDS ORDERED: ACETAMINOPHEN 325 MG TABLET PO PRN (09:00)
[2018-09-20] MEDS: LISINOPRIL 5 MG TABLET PO SCH (09:28)
[2018-09-20] MEDS: INSULIN GLARGINE 100 UNITS/ML, PEN SQ-INSULIN SCH ×2 (09:29→20:44)
[2018-09-20 14:15] VITALS: BP 123/80
[2018-09-20 20:20] VITALS: BP 122/82
[2018-09-20] MEDS: TEMAZEPAM 30 MG CAPSULE PO PRN (20:44)
[2018-09-21 03:14] VITALS: BP 127/82
[2018-09-21] MEDS: CEFTAROLINE 600 MG in SODIUM CHLORIDE 0.9% 100 ML IV SCH ×3 (04:55→21:26)
[2018-09-21] MEDS: HEPARIN 5,000 UNITS/ML, 1ML SQ SCH (04:55)
[2018-09-21] MEDS: MUPIROCIN OINT 2%, 22GM TP SCH ×2 (04:57→16:43)
[2018-09-21 05:28] LABS: HCT (SEDRATE) 38.7 % (39.2-51.8)
[2018-09-21 05:30] LABS: BASOPHILS # (AUTO) 0.03 x10^3/uL (0-0.1); BASOPHILS % (AUTO) 1 % (0-1); EOSINOPHILS # (AUTO) 0.11 x10^3/uL (0-0.4); EOSINOPHILS % (AUTO) 2 % (1-7); LYMPHOCYTES # (AUTO) 1.74 x10^3/uL (1-3.4); LYMPHOCYTES % (AUTO) 31 % (22-44); MD NO; MEAN CORPUSCULAR HEMOGLOBIN 28.4 pg (27.5-34.5); MEAN CORPUSCULAR HGB CONC 33.5 g/dL (33.2-36.2); MEAN CORPUSCULAR VOLUME 84.9 fL (81-97); MEAN PLATELET VOLUME 7.8 fL (7.4-10.4); MONOCYTES # (AUTO) 0.44 x10^3/uL (0.2-0.8); MONOCYTES % (AUTO) 8 % (2-9); NEUTROPHILS # (AUTO) 3.38 x10^3/uL (1.8-6.8); NEUTROPHILS % (AUTO) 59 % (42-75); PLATELET COUNT 353 x10^3/uL (130-400); RED BLOOD COUNT 4.62 x10^6/uL (4.38-5.82); RED CELL DISTRIBUTION WIDTH 16.5 % (9.4-14.8)
[2018-09-21 05:40] LABS: CHLORIDE 108 mmol/L (98-107)
[2018-09-21 05:47] LABS: ALANINE AMINOTRANSFERASE 16 U/L (12-78); ALBUMIN 2.7 g/dL (3.4-5.0); ALKALINE PHOSPHATASE 97 U/L (45-117); ANION GAP 3 mmol/L (5-15); BILIRUBIN,TOTAL 0.4 mg/dL (0.2-1.0); C-REACTIVE PROTEIN, QUANT 0.43 mg/dL (0.02-0.49); CALCIUM 8.6 mg/dL (8.5-10.1); TOTAL PROTEIN 8.3 g/dL (6.4-8.2)
[2018-09-21] MEDS: INSULIN LISPRO 100 UNITS/ML, PEN SQ-INSULIN SCH ×4 (07:00→21:00)
[2018-09-21 07:48] VITALS: BP 138/91
[2018-09-21] MEDS: DOCUSATE 100 MG CAPSULE PO SCH ×2 (09:00→21:00)
[2018-09-21] MEDS: LISINOPRIL 5 MG TABLET PO SCH (10:22)
[2018-09-21] MEDS: INSULIN GLARGINE 100 UNITS/ML, PEN SQ-INSULIN SCH ×2 (10:22→21:26)
[2018-09-21] MEDS: ENOXAPARIN 40 MG/0.4 ML SQ SCH (10:23)
[2018-09-21 12:59] VITALS: BP 128/80
[2018-09-21 21:55] VITALS: BP 121/74
[2018-09-22 03:09] VITALS: BP 107/68
[2018-09-22] MEDS: CEFTAROLINE 600 MG in SODIUM CHLORIDE 0.9% 100 ML IV SCH ×3 (05:23→20:30)
[2018-09-22] MEDS: MUPIROCIN OINT 2%, 22GM TP SCH ×2 (05:24→18:00)
[2018-09-22] MEDS: INSULIN LISPRO 100 UNITS/ML, PEN SQ-INSULIN SCH ×4 (07:00→20:31)
[2018-09-22] MEDS: DOCUSATE 100 MG CAPSULE PO SCH ×2 (09:00→20:31)
[2018-09-22] MEDS: LISINOPRIL 5 MG TABLET PO SCH (09:10)
[2018-09-22] MEDS: ENOXAPARIN 40 MG/0.4 ML SQ SCH (09:11)
[2018-09-22] MEDS: INSULIN GLARGINE 100 UNITS/ML, PEN SQ-INSULIN SCH ×2 (09:11→20:30)
[2018-09-22 10:00] VITALS: BP 114/74
[2018-09-22 15:00] VITALS: BP 102/65
[2018-09-22 18:18] VITALS: BP 91/56
[2018-09-23 02:12] VITALS: BP 110/69
[2018-09-23] MEDS: MUPIROCIN OINT 2%, 22GM TP SCH ×2 (05:19→16:56)
[2018-09-23] MEDS: CEFTAROLINE 600 MG in SODIUM CHLORIDE 0.9% 100 ML IV SCH ×3 (05:19→20:36)
[2018-09-23] MEDS: INSULIN LISPRO 100 UNITS/ML, PEN SQ-INSULIN SCH ×4 (07:00→21:00)
[2018-09-23 08:10] VITALS: BP 112/79
[2018-09-23] MEDS: DOCUSATE 100 MG CAPSULE PO SCH ×2 (08:33→21:00)
[2018-09-23] MEDS: ENOXAPARIN 40 MG/0.4 ML SQ SCH (08:37)
[2018-09-23] MEDS: INSULIN GLARGINE 100 UNITS/ML, PEN SQ-INSULIN SCH ×2 (08:37→20:36)
[2018-09-23] MEDS: LISINOPRIL 5 MG TABLET PO SCH (08:37)
[2018-09-23 13:52] VITALS: BP 111/74
[2018-09-23 18:28] VITALS: BP 121/72
[2018-09-24] VITALS: BP 124/78
[2018-09-24] MEDS: CEFTAROLINE 600 MG in SODIUM CHLORIDE 0.9% 100 ML IV SCH ×3 (05:30→21:20)
[2018-09-24] MEDS: MUPIROCIN OINT 2%, 22GM TP SCH ×2 (05:35→18:00)
[2018-09-24] MEDS: INSULIN LISPRO 100 UNITS/ML, PEN SQ-INSULIN SCH ×4 (07:20→21:00)
[2018-09-24 07:26] VITALS: BP 109/67
[2018-09-24] MEDS: LISINOPRIL 5 MG TABLET PO SCH (08:29)
[2018-09-24] MEDS: INSULIN GLARGINE 100 UNITS/ML, PEN SQ-INSULIN SCH ×2 (08:29→21:37)
[2018-09-24] MEDS: ENOXAPARIN 40 MG/0.4 ML SQ SCH (08:29)
[2018-09-24] MEDS: DOCUSATE 100 MG CAPSULE PO SCH ×2 (08:29→21:00)
[2018-09-24 13:49] VITALS: BP 107/74
[2018-09-24 18:31] VITALS: BP 121/80
[2018-09-25 01:47] VITALS: BP 117/79
[2018-09-25] MEDS: MUPIROCIN OINT 2%, 22GM TP SCH ×2 (06:00→18:10)
[2018-09-25] MEDS: CEFTAROLINE 600 MG in SODIUM CHLORIDE 0.9% 100 ML IV SCH ×3 (06:01→21:49)
[2018-09-25] MEDS: INSULIN LISPRO 100 UNITS/ML, PEN SQ-INSULIN SCH ×4 (06:57→21:00)
[2018-09-25 08:15] VITALS: BP 128/86
[2018-09-25] MEDS: ENOXAPARIN 40 MG/0.4 ML SQ SCH (09:25)
[2018-09-25] MEDS: DOCUSATE 100 MG CAPSULE PO SCH ×2 (09:26→21:00)
[2018-09-25] MEDS: LISINOPRIL 5 MG TABLET PO SCH (09:26)
[2018-09-25] MEDS: INSULIN GLARGINE 100 UNITS/ML, PEN SQ-INSULIN SCH ×2 (09:27→22:06)
[2018-09-25] MEDS: DIPHENHYDRAMINE 25 MG CAPSULE PO PRN (10:26)
[2018-09-25 15:33] VITALS: BP 110/72
[2018-09-25 18:34] VITALS: BP 119/78
[2018-09-26 01:03] VITALS: BP 118/76
[2018-09-26 05:41] LABS: CREATININE 1.13 mg/dL (0.7-1.3)
[2018-09-26] MEDS: MUPIROCIN OINT 2%, 22GM TP SCH ×2 (06:00→18:00)
[2018-09-26] MEDS: CEFTAROLINE 600 MG in SODIUM CHLORIDE 0.9% 100 ML IV SCH ×3 (06:29→21:54)
[2018-09-26] MEDS: INSULIN LISPRO 100 UNITS/ML, PEN SQ-INSULIN SCH ×4 (07:00→21:00)
[2018-09-26 07:40] VITALS: BP 124/88
[2018-09-26] MEDS: LISINOPRIL 5 MG TABLET PO SCH (09:27)
[2018-09-26] MEDS: ENOXAPARIN 40 MG/0.4 ML SQ SCH (09:29)
[2018-09-26] MEDS: INSULIN GLARGINE 100 UNITS/ML, PEN SQ-INSULIN SCH ×2 (09:30→22:07)
[2018-09-26] MEDS: DOCUSATE 100 MG CAPSULE PO SCH ×2 (09:30→21:00)
[2018-09-26 13:35] VITALS: BP 109/76
[2018-09-26 20:45] VITALS: BP 115/76
[2018-09-26] MEDS: DIPHENHYDRAMINE 25 MG CAPSULE PO PRN (21:54)
[2018-09-27 02:09] VITALS: BP 106/70
[2018-09-27] MEDS: MUPIROCIN OINT 2%, 22GM TP SCH ×2 (06:00→17:59)
[2018-09-27] MEDS: CEFTAROLINE 600 MG in SODIUM CHLORIDE 0.9% 100 ML IV SCH ×3 (06:28→22:27)
[2018-09-27] MEDS: INSULIN LISPRO 100 UNITS/ML, PEN SQ-INSULIN SCH ×4 (07:20→21:30)
[2018-09-27 09:00] VITALS: BP 124/80
[2018-09-27] MEDS: ENOXAPARIN 40 MG/0.4 ML SQ SCH (09:01)
[2018-09-27] MEDS: LISINOPRIL 5 MG TABLET PO SCH (09:01)
[2018-09-27] MEDS: INSULIN GLARGINE 100 UNITS/ML, PEN SQ-INSULIN SCH ×2 (09:01→21:30)
[2018-09-27] MEDS: DOCUSATE 100 MG CAPSULE PO SCH ×2 (09:02→21:00)
[2018-09-27 14:00] VITALS: BP 133/87
[2018-09-27 19:42] VITALS: BP 138/80
[2018-09-27] MEDS: TEMAZEPAM 30 MG CAPSULE PO PRN (21:29)
[2018-09-27] MEDS: DIPHENHYDRAMINE 25 MG CAPSULE PO PRN (21:29)
[2018-09-28 00:39] VITALS: BP 103/62
[2018-09-28] MEDS: CEFTAROLINE 600 MG in SODIUM CHLORIDE 0.9% 100 ML IV SCH ×3 (06:05→22:26)
[2018-09-28] MEDS: MUPIROCIN OINT 2%, 22GM TP SCH ×2 (06:06→17:31)
[2018-09-28] MEDS: INSULIN LISPRO 100 UNITS/ML, PEN SQ-INSULIN SCH ×4 (06:13→20:39)
[2018-09-28 06:38] LABS: BASOPHILS # (AUTO) 0.05 x10^3/uL (0-0.1); BASOPHILS % (AUTO) 1 % (0-1); EOSINOPHILS # (AUTO) 0.16 x10^3/uL (0-0.4); EOSINOPHILS % (AUTO) 3 % (1-7); LYMPHOCYTES # (AUTO) 1.72 x10^3/uL (1-3.4); LYMPHOCYTES % (AUTO) 35 % (22-44); MD NO; MEAN CORPUSCULAR HEMOGLOBIN 28.2 pg (27.5-34.5); MEAN CORPUSCULAR HGB CONC 33.1 g/dL (33.2-36.2); MEAN CORPUSCULAR VOLUME 85.3 fL (81-97); MEAN PLATELET VOLUME 8.2 fL (7.4-10.4); MONOCYTES # (AUTO) 0.56 x10^3/uL (0.2-0.8); MONOCYTES % (AUTO) 12 % (2-9); NEUTROPHILS % (AUTO) 49 % (42-75); PLATELET COUNT 222 x10^3/uL (130-400); RED BLOOD COUNT 4.68 x10^6/uL (4.38-5.82); RED CELL DISTRIBUTION WIDTH 16.1 % (9.4-14.8)
[2018-09-28 06:42] VITALS: BP 113/75
[2018-09-28 06:49] LABS: ALANINE AMINOTRANSFERASE 19 U/L (12-78); ALBUMIN 2.8 g/dL (3.4-5.0); ALKALINE PHOSPHATASE 85 U/L (45-117); ANION GAP 5 mmol/L (5-15); BILIRUBIN,TOTAL 0.3 mg/dL (0.2-1.0); C-REACTIVE PROTEIN, QUANT 0.23 mg/dL (0.02-0.49); CALCIUM 8.8 mg/dL (8.5-10.1); CHLORIDE 109 mmol/L (98-107); CREATININE 0.96 mg/dL (0.7-1.3); TOTAL PROTEIN 7.7 g/dL (6.4-8.2)
[2018-09-28 06:57] LABS: HCT (SEDRATE) 39.3 % (39.2-51.8)
[2018-09-28] MEDS: DOCUSATE 100 MG CAPSULE PO SCH ×2 (07:20→20:29)
[2018-09-28] MEDS: LISINOPRIL 5 MG TABLET PO SCH (07:52)
[2018-09-28] MEDS: ENOXAPARIN 40 MG/0.4 ML SQ SCH (07:52)
[2018-09-28] MEDS: INSULIN GLARGINE 100 UNITS/ML, PEN SQ-INSULIN SCH ×2 (07:53→20:39)
[2018-09-28 14:00] VITALS: BP 108/70
[2018-09-28 20:17] VITALS: BP 113/74
[2018-09-28] MEDS: DIPHENHYDRAMINE 25 MG CAPSULE PO PRN (22:26)
[2018-09-28] MEDS: TEMAZEPAM 30 MG CAPSULE PO PRN (22:26)
[2018-09-29 02:00] VITALS: BP 120/68
[2018-09-29] MEDS: MUPIROCIN OINT 2%, 22GM TP SCH ×2 (06:00→16:24)
[2018-09-29] MEDS: CEFTAROLINE 600 MG in SODIUM CHLORIDE 0.9% 100 ML IV SCH ×3 (06:07→21:38)
[2018-09-29] MEDS: INSULIN LISPRO 100 UNITS/ML, PEN SQ-INSULIN SCH ×4 (06:08→21:00)
[2018-09-29] MEDS: DOCUSATE 100 MG CAPSULE PO SCH ×2 (07:08→21:00)
[2018-09-29 07:42] VITALS: BP 128/85
[2018-09-29] MEDS: ENOXAPARIN 40 MG/0.4 ML SQ SCH (09:14)
[2018-09-29] MEDS: LISINOPRIL 5 MG TABLET PO SCH (09:15)
[2018-09-29] MEDS: INSULIN GLARGINE 100 UNITS/ML, PEN SQ-INSULIN SCH ×2 (09:16→21:56)
[2018-09-29 12:31] VITALS: BP 134/89
[2018-09-29 20:06] VITALS: BP 114/78
[2018-09-29] MEDS: TEMAZEPAM 30 MG CAPSULE PO PRN (21:36)
[2018-09-29] MEDS: DIPHENHYDRAMINE 25 MG CAPSULE PO PRN (21:36)
[2018-09-30 01:59] VITALS: BP 112/72
[2018-09-30] MEDS: MUPIROCIN OINT 2%, 22GM TP SCH ×2 (06:00→18:00)
[2018-09-30] MEDS: CEFTAROLINE 600 MG in SODIUM CHLORIDE 0.9% 100 ML IV SCH ×3 (06:15→22:25)
[2018-09-30] MEDS: INSULIN LISPRO 100 UNITS/ML, PEN SQ-INSULIN SCH ×4 (06:17→21:00)
[2018-09-30] MEDS: LISINOPRIL 5 MG TABLET PO SCH (08:43)
[2018-09-30] MEDS: ENOXAPARIN 40 MG/0.4 ML SQ SCH (08:43)
[2018-09-30] MEDS: DOCUSATE 100 MG CAPSULE PO SCH ×3 (08:43→21:00)
[2018-09-30] MEDS: INSULIN GLARGINE 100 UNITS/ML, PEN SQ-INSULIN SCH ×2 (08:45→22:38)
[2018-09-30 09:00] VITALS: BP 129/67
[2018-09-30 13:42] VITALS: BP 115/76
[2018-09-30 20:00] VITALS: BP 126/79
[2018-10-01 02:10] VITALS: BP 113/71
[2018-10-01] MEDS: MUPIROCIN OINT 2%, 22GM TP SCH ×2 (06:00→18:00)
[2018-10-01] MEDS: CEFTAROLINE 600 MG in SODIUM CHLORIDE 0.9% 100 ML IV SCH ×3 (06:00→21:59)
[2018-10-01] MEDS: INSULIN LISPRO 100 UNITS/ML, PEN SQ-INSULIN SCH ×4 (07:00→21:58)
[2018-10-01] MEDS: ENOXAPARIN 40 MG/0.4 ML SQ SCH (08:21)
[2018-10-01] MEDS: LISINOPRIL 5 MG TABLET PO SCH (08:21)
[2018-10-01] MEDS: INSULIN GLARGINE 100 UNITS/ML, PEN SQ-INSULIN SCH ×2 (08:22→21:59)
[2018-10-01] MEDS: DOCUSATE 100 MG CAPSULE PO SCH ×2 (08:23→21:58)
[2018-10-01 09:35] VITALS: BP 136/81
[2018-10-01] MEDS ORDERED: OMNIPAQUE 350 MG/ML, 75ML BOTTLE ONE (13:46)
[2018-10-01 14:49] VITALS: BP 113/73
[2018-10-01 19:01] VITALS: BP 107/69
[2018-10-01] MEDS: DIPHENHYDRAMINE 25 MG CAPSULE PO PRN (23:04)
[2018-10-02 00:05] VITALS: BP 111/73
[2018-10-02] MEDS: MUPIROCIN OINT 2%, 22GM TP SCH ×2 (06:00→18:00)
[2018-10-02] MEDS: CEFTAROLINE 600 MG in SODIUM CHLORIDE 0.9% 100 ML IV SCH ×3 (06:03→22:23)
[2018-10-02] MEDS: INSULIN LISPRO 100 UNITS/ML, PEN SQ-INSULIN SCH ×4 (06:44→21:18)
[2018-10-02 06:58] VITALS: BP 104/68
[2018-10-02] MEDS: DOCUSATE 100 MG CAPSULE PO SCH ×2 (09:00→21:00)
[2018-10-02] MEDS: ENOXAPARIN 40 MG/0.4 ML SQ SCH (09:10)
[2018-10-02] MEDS: LISINOPRIL 5 MG TABLET PO SCH (09:10)
[2018-10-02] MEDS: INSULIN GLARGINE 100 UNITS/ML, PEN SQ-INSULIN SCH ×2 (09:27→21:18)
[2018-10-02 14:23] VITALS: BP 108/69
[2018-10-02] MEDS: TEMAZEPAM 30 MG CAPSULE PO PRN (22:23)
[2018-10-02 23:30] VITALS: BP 118/73
[2018-10-03 00:50] VITALS: BP 122/79
[2018-10-03] MEDS: CEFTAROLINE 600 MG in SODIUM CHLORIDE 0.9% 100 ML IV SCH ×3 (06:09→22:05)
[2018-10-03] MEDS: MUPIROCIN OINT 2%, 22GM TP SCH ×2 (06:09→18:00)
[2018-10-03 06:38] LABS: MICROSCOPIC NOT IND
[2018-10-03] MEDS: INSULIN LISPRO 100 UNITS/ML, PEN SQ-INSULIN SCH ×4 (07:00→20:08)
[2018-10-03] MEDS: ENOXAPARIN 40 MG/0.4 ML SQ SCH (09:00)
[2018-10-03] MEDS: DOCUSATE 100 MG CAPSULE PO SCH ×2 (09:00→20:10)
[2018-10-03 09:45] VITALS: BP 154/82
[2018-10-03] MEDS: LISINOPRIL 5 MG TABLET PO SCH (10:31)
[2018-10-03] MEDS: INSULIN GLARGINE 100 UNITS/ML, PEN SQ-INSULIN SCH ×2 (10:31→20:08)
[2018-10-03 14:14] VITALS: BP 120/79
[2018-10-03 20:00] VITALS: BP 113/77
[2018-10-04 02:18] VITALS: BP 110/69
[2018-10-04] MEDS: CEFTAROLINE 600 MG in SODIUM CHLORIDE 0.9% 100 ML IV SCH (06:38)
[2018-10-04] MEDS: MUPIROCIN OINT 2%, 22GM TP SCH (06:38)
[2018-10-04] MEDS: INSULIN LISPRO 100 UNITS/ML, PEN SQ-INSULIN SCH ×2 (07:00→11:00)
[2018-10-04 07:58] VITALS: BP 128/85
[2018-10-04] MEDS: ENOXAPARIN 40 MG/0.4 ML SQ SCH (08:46)
[2018-10-04] MEDS: DOCUSATE 100 MG CAPSULE PO SCH (08:47)
[2018-10-04] MEDS: LISINOPRIL 5 MG TABLET PO SCH (08:47)
[2018-10-04] MEDS: INSULIN GLARGINE 100 UNITS/ML, PEN SQ-INSULIN SCH (08:47)
[2018-10-04] MEDS ORDERED: DOXYCYCLINE 100MG TABLET PO SCH (09:00)
[2018-10-04] MEDS ORDERED: LISI5TAB7 PO (10:54)
[2018-10-04] MEDS ORDERED: INSU100I11 SQ-INSULIN (10:54)
[2018-10-04] MEDS ORDERED: INSU100I13 SQ-INSULIN ×2 (10:54)
[2018-10-04] MEDS ORDERED: DOXY100T PO (10:54)
[2018-10-04 13:35] LABS: HCT (SEDRATE) 41.6 % (39.2-51.8)
== END 2018-10-04 14:05 | disposition home or self-care (01) | DRG 193 ==
LOC: ED 09-03 01:11 → EDIP 09-03 01:16 → ED 09-03 01:19 → 4NOR 09-03 02:00
PROVIDERS: ADMIT Internal Medicine; ATTEND Hospitalist
PROC: 05HY33Z Insertion of Infusion Device into Upper Vein, Percutaneous Approach (ICD-10-PCS; principal; 2018-09-11)
PROC: B51V1ZA Fluoroscopy of Other Veins using Low Osmolar Contrast, Guidance (ICD-10-PCS; 2018-09-11)
DX: J15.9 Unspecified bacterial pneumonia (principal); I26.90 Septic pulmonary embolism without acute cor pulmonale; E87.1 Hypo-osmolality and hyponatremia; I76 Septic arterial embolism; J98.11 Atelectasis; N10 Acute pyelonephritis; R78.81 Bacteremia; B95.62 Methicillin resistant Staphylococcus aureus infection as the cause of diseases classified elsewhere; E11.65 Type 2 diabetes mellitus with hyperglycemia; E83.39 Other disorders of phosphorus metabolism; G47.00 Insomnia, unspecified; I10 Essential (primary) hypertension; K60.2 Anal fissure, unspecified; L02.92 Furuncle, unspecified; Z78.9 Other specified health status; Z80.0 Family history of malignant neoplasm of digestive organs; Z82.49 Family history of ischemic heart disease and other diseases of the circulatory system; Z86.19 Personal history of other infectious and parasitic diseases; Z87.891 Personal history of nicotine dependence; Z79.84 Long term (current) use of oral hypoglycemic drugs
CPT/HCPCS: 36415; 36573; 71045; 71260; 71275; 80048; 80053; 80202; 80307; 81001; 81003; 82040; 82105; 82378; 82565; 82962; 83036; 83735; 84100; 84484; 85025; 85379; 85651; 86140; 86301; 86480; 86803; 87015; 87040; 87077; 87086; 87116; 87147; 87186; 87206; 87400; 87806; 90656; 93005; 93308; 94640; 96374; G0378; J0456; J0696; J0712; J1644; J1650; J1885; J2405; J3370; Q9967; C1751; G0009; G0475; J1815; J7040; J7050; J7120; Q0163